=== PATIENT | female | born 1970 | race Native Hawaiian/Other Pacific Islander ===

== ENCOUNTER 2017-02-11 07:04 | Inpatient (IN) | payer OTHER ==
[2017-01-31 14:04] VITALS: BMI 30.8
--- NOTE | 2017-02-11 08:04 | CP.PCM.HP ---
History of Present Illness - History of Present Illness History of Present Illness: pelvic pain ,fibroid uterus Present on Admission - Present on Admission Any Indicators Present on Admission: No History of DVT/PE: No History of Uncontrolled Diabetes: No Urinary Catheter: No Decubitus Ulcer Present: No Review of Systems - Constitutional Constitutional: As Per HPI - EENT Eyes: As Per HPI Ears: As Per HPI - Breasts Breasts: As Per HPI - Respiratory Respiratory: As Per HPI - Genitourinary Genitourinary: As Per HPI - Menstruation Menstruation: As Per HPI - Musculoskeletal Musculoskeletal: As Per HPI - Integumentary Integumentary: As Per HPI - Neurological Neurological: As Per HPI - Psychiatric Psychiatric: As Per HPI - Endocrine Endocrine: As Per HPI Past Patient History - Past Medical History & Family History Past Medical History?: Yes - Past Social History Smoking Status: Never Smoked - CARDIAC Hx Cardiac Disorders: No - PULMONARY Hx Respiratory Disorders: No - NEUROLOGICAL Hx Neurological Disorder: No - HEENT Hx HEENT Problems: Yes Other/Comment: ASTIGMATISM .NEAR SIGHTED(MYOPIA) - RENAL Hx Chronic Kidney Disease: No Other/Comment: HX OF RENAL CYST - ENDOCRINE/METABOLIC Hx Endocrine Disorders: Yes Hx Diabetes Mellitus Type 2: Yes - HEMATOLOGICAL/ONCOLOGICAL Hx Blood Disorders: No - INTEGUMENTARY Hx Dermatological Problems: No - MUSCULOSKELETAL/RHEUMATOLOGICAL Hx Musculoskeletal Disorders: Yes Hx Arthritis: Yes - GASTROINTESTINAL Hx Gastrointestinal Disorders: No - GENITOURINARY/GYNECOLOGICAL Hx Genitourinary Disorders: No - PSYCHIATRIC Hx Psychophysiologic Disorder: No - SURGICAL HISTORY Hx Surgeries: Yes Hx Arthroscopy: Yes (LEFT KNEE MENISCECTOMY) Hx Breast Biopsy: Yes - ANESTHESIA Hx Anesthesia: Yes Hx Anesthesia Reactions: No Hx Malignant Hyperthermia: No Has any member of the family had a problem w/ anesthesia?: No Meds Allergies/Adverse Reactions: Allergies Allergy/AdvReac Type Severity Reaction Status Date / Time asparagus Allergy RASH Verified 01/31/17 09:50 Results - Vital Signs Recent Vital Signs: Last Vital Signs Temp 97.5 F L 01/31/17 14:03 Pulse 74 01/31/17 14:03 Resp 18 01/31/17 14:03 BP 120/70 01/31/17 14:03 Pulse Ox - Labs Labs: Laboratory Results - last 24 hr 02/11/17 07:33 POC Glucose (mg/dL) 213 H
[2017-02-11] MEDS ORDERED: Propofol 10 mg/ml Inj (20 ML) ONE (08:51)
[2017-02-11] MEDS ORDERED: Rocuronium 10 mg/ml (5 ml) ONE (08:52)
[2017-02-11] MEDS ORDERED: Midazolam 2 MG/2 ML VIAL ONE (08:52)
[2017-02-11] MEDS ORDERED: Lactated Ringer's 1,000 ML IV ONE ×2 (09:15→10:10)
[2017-02-11] MEDS ORDERED: cefOXitin Sodium 1 GM in Sodium Chloride 0.9% 100 ML IVPB ONE (09:33)
[2017-02-11] MEDS ORDERED: Esmolol 100 mg/10ml Inj IV ONE (09:40)
[2017-02-11] MEDS ORDERED: Morphine 1 mg/ml preservative-free Inj(Duramorph) ONE (09:44)
[2017-02-11] MEDS ORDERED: Neostigmine Methylsulfate 2 MG/2 ML ML IV ONE (10:24)
[2017-02-11] MEDS ORDERED: Neostigmine Methylsulfate 3mg/3ml Syringe IV ONE (10:24)
[2017-02-11] MEDS ORDERED: HYDROmorphone 0.5 mg/0.5 ml ISec ONE (11:12)
[2017-02-11] MEDS ORDERED: Oxycodone/Acetaminophen 5/325 mg Tab PO PRN (11:42)
[2017-02-11] MEDS: HYDROmorphone 0.5 mg/0.5 ml ISec IVP PRN ×4 (12:01→12:40)
--- NOTE | 2017-02-11 15:11 | OP ---
PROCEDURE DATE: 02/11/2017 PREOPERATIVE DIAGNOSES: Fibroid uterus, pelvic pain. POSTOPERATIVE DIAGNOSES: Fibroid uterus, pelvic pain. SURGEON: Devante Yang MD OCEANOGRAPHER ASSISTANT: Dr. Li. ANESTHESIA: Dr. general anesthesia. PROCEDURE: Laparotomy with myomectomy. POSTOP FINDINGS: Several myoma fundally and posteriorly. ESTIMATED BLOOD LOSS: About 100 mL. DESCRIPTION OF PROCEDURE: With the patient in the supine position under general anesthesia, the elisha ent was prepped and draped in usual sterile manner. Dr. Li was there to help prepare the patien t for surgery. After this was done, a Pfannenstiel incision was made and taken down through the fasc ia in layers. Fascia was incised and extended bilaterally. I am doing my side, Dr. Li doing hi s side. After this was done, the muscle was from the fascia by sharp dissection. The chato toneum was grasped, incised and extended vertically upon entering the abdominopelvic cavity. The fib roids were identified and were removed sequentially, closed each incision that was made, maintaining hemostasis. There were about 3 or 4 fibroids recognized and these were removed without any complicat ion and the incisions were closed, maintaining hemostasis. After this was done, the pelvic cavity wa s irrigated until clean and Interceed was placed on the uterus to help prevent any adhesions. The pe ritoneum was then grasped and closed with 1 Vicryl, muscles approximated with 1 Vicryl. The fascia w as closed with 1 Vicryl running interlocking stitch starting at each end and finishing in the midline . Dr. Li doing his side and I did my side. After this was done, the subcutaneous layer was latosha sed with 2-0 plain and the skin was closed with derrick. Dr. Li was present from the beginning of the surgery to the end. The patient tolerated procedure well and was in satisfactory condition on the way to recovery room. Devante Yang MD cc: 22 TT: 02/11/2017 15:10:07 kirk
[2017-02-11] MEDS: cefOXitin Sodium 1 GM in Sodium Chloride 0.9% 100 ML IVPB SCH (17:24)
[2017-02-12] MEDS: cefOXitin Sodium 1 GM in Sodium Chloride 0.9% 100 ML IVPB SCH ×2 (01:12→09:56)
[2017-02-12 07:28] LABS: HEMATOCRIT 31.3 % (34.0-47.0); MEAN CELL VOLUME 85.3 fl (81.0-99.0); MEAN CORPUSCULAR HEMOGLOBIN 29.2 pg (27.0-31.0); MEAN CORPUSCULAR HGB CONC 34.2 g/dL (33.0-37.0); RED CELL DISTRIBUTION WIDTH 13.8 % (11.5-14.5); WHITE BLOOD COUNT 6.6 K/uL (4.8-10.8)
[2017-02-12] MEDS ORDERED: Insulin Regular 100 units/ml SC ONE (11:30)
--- NOTE | 2017-02-12 14:13 | CP.PCM.PN ---
Subjective - Date & Time of Evaluation Date of Evaluation: 02/12/17 Time of Evaluation: 02:10 - Subjective Subjective: no complaints today Objective - Vital Signs/Intake and Output Vital Signs (last 24 hours): Temp Pulse Resp BP Pulse Ox 97.3 F L 93 H 20 103/66 95 02/12/17 08:11 02/12/17 08:11 02/12/17 08:11 02/12/17 08:11 02/12/17 08:11 - Medications Medications: Current Medications Ketorolac Tromethamine (Toradol) 30 mg IVP ONCE PRN PRN Reason: Pain, moderate (4-7) Last Admin: 02/11/17 12:52 Dose: 30 mg Oxycodone/Acetaminophen (Percocet 5/325 Mg Tab) 1 tab PO Q6 PRN PRN Reason: Pain, severe (8-10) Stop: 02/14/17 11:43 Last Admin: 02/11/17 21:23 Dose: 1 tab - Labs Labs: 02/12/17 05:30 - Eye Exam Additional comments: v.s stable afebrile incision clean and heling Assessment and Plan - Assessment and Plan (Free Text) Assessment: stable pod1 s/p myomectomy Plan: contrinue present care collin diehl with assistance increase diet as tolerated may shower
[2017-02-13 07:50] VITALS: BP 98/62; PULSE 81; RESP 18; TEMP 98.1; O2SAT 96
--- NOTE | 2017-02-13 12:16 | CP.PCM.DIS ---
Provider - Provider Date of Admission: 02/11/17 11:42 Attending physician: Devante Yang MD Primary care physician: Jonatan Geiger MD Consults: none Time Spent in preparation of Discharge (in minutes): 15 Hospital Course - Lab Results Lab Results: Most Recent Lab Values WBC 6.6 K/uL (4.8-10.8) 02/12/17 05:30 RBC 3.67 Mil/uL (3.80-5.20) L 02/12/17 05:30 Hgb 10.7 g/dL (12.0-16.0) L 02/12/17 05:30 Hct 31.3 % (34.0-47.0) L 02/12/17 05:30 MCV 85.3 fl (81.0-99.0) 02/12/17 05:30 MCH 29.2 pg (27.0-31.0) 02/12/17 05:30 MCHC 34.2 g/dL (33.0-37.0) 02/12/17 05:30 RDW 13.8 % (11.5-14.5) 02/12/17 05:30 Plt Count 192 K/uL (130-400) 02/12/17 05:30 POC Glucose (mg/dL) 220 mg/dL (65-110) H 02/13/17 11:22 Blood Type A POSITIVE 02/11/17 07:30 Blood Type Confirm A POSITIVE 02/11/17 08:55 Antibody Screen Negative 02/11/17 07:30 BBK History Checked No verified bt 02/11/17 07:30 Discharge Plan - Follow Up Plan Condition: GOOD Disposition: HOME/ ROUTINE Instructions: Myomectomy (DC) Referrals: Devante Yang MD [Staff Provider] - Jonatan Geiger MD [Primary Care Provider] -
--- NOTE | 2017-02-13 12:19 | CP.PCM.DIS ---
Provider - Provider Date of Admission: 02/11/17 11:42 Attending physician: Devante Yang MD Primary care physician: Jonatan Geiger MD Time Spent in preparation of Discharge (in minutes): 15 Hospital Course - Lab Results Lab Results: Most Recent Lab Values WBC 6.6 K/uL (4.8-10.8) 02/12/17 05:30 RBC 3.67 Mil/uL (3.80-5.20) L 02/12/17 05:30 Hgb 10.7 g/dL (12.0-16.0) L 02/12/17 05:30 Hct 31.3 % (34.0-47.0) L 02/12/17 05:30 MCV 85.3 fl (81.0-99.0) 02/12/17 05:30 MCH 29.2 pg (27.0-31.0) 02/12/17 05:30 MCHC 34.2 g/dL (33.0-37.0) 02/12/17 05:30 RDW 13.8 % (11.5-14.5) 02/12/17 05:30 Plt Count 192 K/uL (130-400) 02/12/17 05:30 POC Glucose (mg/dL) 220 mg/dL (65-110) H 02/13/17 11:22 Blood Type A POSITIVE 02/11/17 07:30 Blood Type Confirm A POSITIVE 02/11/17 08:55 Antibody Screen Negative 02/11/17 07:30 BBK History Checked No verified bt 02/11/17 07:30 - Hospital Course Hospital Course: uneventful - Date & Time of H&P Date of H&P: 02/11/17 Time of H&P: 07:30 Discharge Exam - Head Exam Head Exam: NORMAL INSPECTION - Eye Exam Eye Exam: Normal appearance - ENT Exam ENT Exam: Normal Exam - Neck Exam Neck exam: Normal Inspection - Respiratory Exam Respiratory Exam: NORMAL BREATHING PATTERN - GI/Abdominal Exam GI & Abdominal Exam: Unremarkable - Exam External exam: NORMAL EXTERNAL EXAM Speculum exam: NORMAL SPECULUM EXAM Bimanual exam: NORMAL BIMANUAL EXAM - Back Exam Back exam: NORMAL INSPECTION - Neurological Exam Neurological exam: Reflexes Normal - Psychiatric Exam Psychiatric exam: Normal Affect Discharge Plan - Follow Up Plan Condition: GOOD Patient education suggested?: Yes Additional Instructions: call office if any problems
== END 2017-02-13 13:29 | disposition home or self-care (01) | DRG 743 ==
LOC: H.OPSURG 07:04 → H.MEDSURG1 11:42
PROVIDERS: ADMIT Specialist; ATTEND Specialist
PROC: 0UB90ZZ Excision of Uterus, Open Approach (ICD-10-PCS; principal; 2017-02-11 09:00)
DX: D25.9 Leiomyoma of uterus, unspecified (principal); Z91.018 Allergy to other foods